=== PATIENT | male | born 1940 | race Two or more races ===

== ENCOUNTER → 2016-11-09 | Outpatient (CLI) | payer MEDICARE ==
[~2016-11-09] MED LIST: IOVERSOL 350 MG/ML 150 ML VIAL ONE; MEDRONATE TC99M/UD<30 MCL ISOTOPE 1 EA INJ INJ ONE; SODIUM CHLORIDE 0.9% 100 ML ONE
== END | disposition home or self-care (01) ==
LOC: RADMN 08:43
PROVIDERS: ATTEND Urology
DX: C61 Malignant neoplasm of prostate (principal); M53.86 Other specified dorsopathies, lumbar region; Z98.1 Arthrodesis status; Z96.653 Presence of artificial knee joint, bilateral
CPT/HCPCS: 74177; 78306; A9503; J7050; Q9967